=== PATIENT | male | born 1965 | race Caucasian/White ===

== ENCOUNTER → 2018-05-09 | Day surgery (SDC) | payer OTHER ==
[~2018-05-09] MED LIST: IV RINGERS,LACTATED 1000ML 1,000 ML IV; LIDOCAINE 1% PF 2 ML VIAL. ID; MIDAZOLAM HCL/PF 2 MG/2 ML VIAL. IV; MORPHINE SULFATE 2 MG/ML DISP.SYRIN. IV; ONDANSETRON PF 4 MG/2 ML VIAL. IV; PROCHLORPERAZINE 10 MG/2 ML VIAL. IV; PROPOFOL 20 ML IV; fentaNYL PF VIAL 100 MCG/2 ML VIAL IV
[2018-05-09] MEDS: IV RINGERS,LACTATED 1000ML 1,000 ML IV (08:42)
== END | disposition home or self-care (01) ==
LOC: SURG 08:07
DX: Z12.11 Encounter for screening for malignant neoplasm of colon (principal); K57.30 Diverticulosis of large intestine without perforation or abscess without bleeding; K64.0 First degree hemorrhoids; I10 Essential (primary) hypertension; F41.9 Anxiety disorder, unspecified; I48.91 Unspecified atrial fibrillation; Z79.899 Other long term (current) drug therapy; Z83.71 Family history of colonic polyps; Z83.3 Family history of diabetes mellitus; Z82.3 Family history of stroke; Z72.89 Other problems related to lifestyle; Z98.890 Other specified postprocedural states
CPT/HCPCS: 45378; G0105; J2704